=== PATIENT | female | born 1950 | race Caucasian/White ===

== ENCOUNTER 2018-03-07 11:59 | Day surgery (SDC) | payer OTHER ==
[2018-03-07] MEDS ORDERED: TROPICAMIDE 1% 15 ML OPH OPER (13:00)
[2018-03-07] MEDS ORDERED: CEFAZOLIN 1 GM INJ (13:01)
[2018-03-07] MEDS ORDERED: LIDOCAINE 1% (MPF) 10 ML INJ (13:02)
[2018-03-07] MEDS ORDERED: EPINEPHrine 1 MG INJ (13:02)
[2018-03-07] MEDS ORDERED: DEXAMETHASONE 4 MG/ML 1 ML INJ (13:02)
[2018-03-07] MEDS ORDERED: SODIUM HYALURONATE 14 MG/ML SYG (13:18)
[2018-03-07] MEDS: LIDOCAINE 3.5% GEL TUBE OPER (13:32)
[2018-03-07] MEDS: PHENYLephrine 2.5% 15 ML OPH OPER (13:33)
[2018-03-07] MEDS: CIPROFLOXACIN 0.3% 2.5 ML OPH OPER (13:33)
[2018-03-07] MEDS: TROPICAMIDE 1% 3 ML OPH OPER (13:34)
[2018-03-07] MEDS: PROPARACAINE 0.5% 15 ML OPH OPER (13:34)
[2018-03-07] MEDS: LIDOCAINE 1% (MPF) 10 ML INJ INJ (13:38)
[2018-03-07] MEDS: DEXAMETHASONE 4 MG/ML 1 ML INJ INJ (13:38)
[2018-03-07] MEDS: SODIUM HYALURONATE 10 MG/ML SYG IO (13:38)
[2018-03-07] MEDS: CEFAZOLIN 1 GM INJ INJ (13:38)
[2018-03-07] MEDS: ACETAZOLAMIDE (SR) 500 MG CAP PO (16:25)
== END 2018-03-07 18:40 | disposition home or self-care (01) ==
LOC: SDS 11:59
DX: H26.9 Unspecified cataract (principal); H40.10X1 Unspecified open-angle glaucoma, mild stage
CPT/HCPCS: 66984; 71045

== ENCOUNTER 2018-06-24 06:21 | Day surgery (SDC) | payer OTHER ==
[2018-06-24] MEDS: PHENYLephrine 2.5% 15 ML OPH OPER ×4 (06:39→06:50)
[2018-06-24] MEDS: LIDOCAINE 3.5% GEL TUBE OPER ×3 (06:39→06:49)
[2018-06-24] MEDS: PROPARACAINE 0.5% 15 ML OPH OPER (06:39)
[2018-06-24] MEDS: CIPROFLOXACIN 0.3% 2.5 ML OPH OPER ×3 (06:43→06:53)
[2018-06-24] MEDS: TROPICAMIDE 1% 15 ML OPH OPER ×3 (06:44→06:54)
[2018-06-24] MEDS: LACTATED RINGER'S 1,000 ML IV (06:59)
[2018-06-24] MEDS: CEFAZOLIN 1 GM INJ (07:52)
[2018-06-24] MEDS: LIDOCAINE 1% (MPF) 10 ML INJ (07:52)
[2018-06-24] MEDS ORDERED: TETRACAINE 0.5% 4 ML OPH (07:53)
[2018-06-24] MEDS: DEXAMETHASONE 4 MG/ML 1 ML INJ (07:53)
[2018-06-24] MEDS ORDERED: EPINEPHrine 1 MG INJ (07:53)
[2018-06-24] MEDS ORDERED: TRIMETHOBENZAMIDE 100 MG/ML VIAL IM (08:00)
[2018-06-24] MEDS ORDERED: DIPHENHYDRAMINE 50 MG INJ IV (08:00)
[2018-06-24] MEDS ORDERED: LABETALOL HCL 20MG INJ IV (08:00)
[2018-06-24] MEDS ORDERED: ALBUTEROL 0.083% (NEB) 2.5 MG/3 ML AMP HHN (08:00)
[2018-06-24] MEDS ORDERED: IPRATROPIUM (NEB) 0.5 MG/2.5 ML AMP HHN (08:00)
[2018-06-24] MEDS ORDERED: HYDROmorphONE 1 MG/5 ML IV SYRINGE IV ×3 (08:00)
[2018-06-24] MEDS ORDERED: hydrALAzine 20 MG INJ IV (08:00)
[2018-06-24] MEDS ORDERED: FENTAnyl 50 MCG/ML VIAL IV ×3 (08:00)
[2018-06-24] MEDS ORDERED: EPHEDrine SULFATE 50 MG/5 ML SYG IV (08:00)
[2018-06-24] MEDS ORDERED: OXYCODONE/ACETAMINOPHEN (5/325) TAB PO ×2 (08:00)
[2018-06-24] MEDS ORDERED: MIDAZOLAM 1 MG/ML 2 ML INJ IV (08:00)
[2018-06-24] MEDS ORDERED: MEPERIDINE 25 MG INJ IV (08:00)
[2018-06-24] MEDS ORDERED: ONDANSETRON 4 MG INJ IV (08:00)
[2018-06-24] MEDS ORDERED: FENTAnyl 50 MCG/ML VIAL (08:20)
[2018-06-24] MEDS ORDERED: ONDANSETRON 4 MG INJ (08:20)
[2018-06-24] MEDS: ACETAZOLAMIDE (SR) 500 MG CAP PO (10:59)
== END 2018-06-24 11:00 | disposition home or self-care (01) ==
LOC: SDS 06:21
DX: H25.12 Age-related nuclear cataract, left eye (principal); H40.9 Unspecified glaucoma; I10 Essential (primary) hypertension
CPT/HCPCS: 66984